=== PATIENT | female | born 1990 | race African-American/Black ===

== ENCOUNTER 2017-02-19 20:38 | Emergency (ER) | payer OTHER ==
[~2017-02-19] VITALS: Ht 152.4 cm; Wt 67.1 kg
[~2017-02-19 20:38] MED LIST: FLEXERIL10 MG PO; IBUPROFEN800 MG PO; KEFLEX500 MG PO; NAPROSYN500 MG PO; NO MEDICATIONS; PRENATAL1 TA1; PRENATAL1 TA1 PO; TRI-SPRINTEC PO
== END 2017-02-19 21:54 | disposition left against medical advice (07) ==
LOC: CED 20:38
DX: Z53.21 Procedure and treatment not carried out due to patient leaving prior to being seen by health care provider (principal)